=== PATIENT | male | born 1960 | race Two or more races ===

== ENCOUNTER 2021-05-23 09:29 | Emergency (ER) | payer MEDICAID, OTHER ==
[~2021-05-23] VITALS: Ht 180.3 cm; Wt 85.3 kg
[2021-05-23 10:51] LABS: Basophils # (auto) 0 10 ^3/uL (0-0.2); Basophils % (auto) 0.7 % (0.0-2.0); Eosinophils # (auto) 0.1 10 ^3/uL (0-0.8); Eosinophils % (auto) 1.3 % (0.0-7.0); Hematocrit 44.3 % (41.0-53.0); Hemoglobin 15.5 g/dL (13.5-17.5); Lymphocytes # (auto) 1.6 10 ^3/uL (0.4-5.4); Lymphocytes % (auto) 25.8 % (10.0-50.0); Mean Corpuscular Hemoglobin 29.2 pg (28.0-32.0); Mean Corpuscular Volume 83.4 fL (80.0-100.0); Monocytes # (auto) 0.5 10 ^3/uL (0-1.3); Monocytes % (auto) 8.8 % (0.0-12.0); Neutrophils # (auto) 3.9 10 ^3/uL (1.6-8.6); Neutrophils % (auto) 63.4 % (37.0-80.0); Nucleated Red Blood Cells % 0.2 %; Red Cell Distribution Width 14.1 % (11.8-14.3); White Blood Cell 6.2 10^3/uL (4.4-10.8)
[2021-05-23 11:42] LABS: Albumin 3.6 g/dL (3.4-5.0); Anion Gap 5 (5-15); Blood Urea Nitrogen 15 mg/dL (7-18); Carbon Dioxide 29 mmol/L (21-32); Chloride 106 mmol/L (98-107); Glucose 89 mg/dL (74-106); Potassium 4.3 mmol/L (3.5-5.1); Sodium 140 mmol/L (136-145)
[2021-05-23 11:49] LABS: Alanine Aminotransferase 38 U/L (16-61); Alkaline Phosphatase 68 U/L (45-117); Aspartate Aminotransferase 24 U/L (15-37); BUN/Creatinine Ratio 14.4; Bilirubin, Total 1.1 mg/dL (0.2-1.0); GFR African American 94 mL/min; GFR Non-African American 78 mL/min; Total Protein 7.1 g/dL (6.4-8.2)
[2021-05-23] MEDS ORDERED: CEPH-509 PO (14:54)
[2021-05-23 15:02] VITALS: BP 135/84
== END 2021-05-23 15:27 | disposition home or self-care (01) ==
LOC: ER 09:29
DX: S00.81XA Abrasion of other part of head, initial encounter (principal); W18.39XA Other fall on same level, initial encounter; Y93.89 Activity, other specified; Y92.89 Other specified places as the place of occurrence of the external cause; Y99.8 Other external cause status
CPT/HCPCS: 36415; 70450; 80053; 84484; 85025; 93005

== ENCOUNTER 2021-07-06 19:21 | Emergency (ER) | payer MEDICAID ==
[~2021-07-06] VITALS: Ht 180.3 cm; Wt 81.6 kg
[~2021-07-06 19:21] MED LIST: CEPH-509 PO
[2021-07-06 19:22] VITALS: BP 114/71
[2021-07-06] MEDS ORDERED: KETOROLAC TROMETH 60MG/2ML VIAL IM ONE (19:30)
[2021-07-06] MEDS ORDERED: LIDOCAINE 5% TOPICAL PATCH TOP ONE (19:30)
[2021-07-07] MEDS ORDERED: PERCOT PO (00:13)
[2021-07-07] MEDS ORDERED: LIDO5DIS21 TOP (00:13)
== END 2021-07-07 00:15 | disposition home or self-care (01) ==
LOC: ER 19:21
DX: S20.212A Contusion of left front wall of thorax, initial encounter (principal); X58.XXXA Exposure to other specified factors, initial encounter; Y93.89 Activity, other specified; Y92.89 Other specified places as the place of occurrence of the external cause; Y99.8 Other external cause status
CPT/HCPCS: 71101; 71250; 74176

== ENCOUNTER 2021-07-26 11:18 | Emergency (ER) | payer MEDICAID ==
[~2021-07-26] VITALS: Ht 180.3 cm; Wt 85.3 kg
[~2021-07-26 11:18] MED LIST changes: +LIDO5DIS21 TOP; +PERCOT PO
[2021-07-26 11:40] VITALS: BP 144/73
[2021-07-26] MEDS ORDERED: KETOROLAC TROMETH 60MG/2ML VIAL IM ONE (11:45)
[2021-07-26] MEDS ORDERED: TRAM-297 PO (12:23)
[2021-07-26] MEDS ORDERED: PRED20TA2 PO (12:23)
== END 2021-07-26 12:29 | disposition home or self-care (01) ==
LOC: ER 11:18
DX: M50.30 Other cervical disc degeneration, unspecified cervical region (principal); M54.12 Radiculopathy, cervical region; Z79.899 Other long term (current) drug therapy; Z88.8 Allergy status to other drugs, medicaments and biological substances
CPT/HCPCS: 72040; 73030; 73080; 96372; 99284; J1885

== ENCOUNTER 2021-08-12 20:12 | Emergency (ER) | payer MEDICAID ==
[~2021-08-12] VITALS: Ht 180.3 cm; Wt 82.2 kg
[~2021-08-12 20:12] MED LIST changes: +PRED20TA2 PO; +TRAM-297 PO
[2021-08-12 21:16] LABS: Urine Bacteria NONE SEEN /hpf (None Seen); Urine Blood Negative /uL (Negative); Urine WBC 2 /hpf (0 - 3)
[2021-08-12 21:31] LABS: Basophils # (auto) 0.2 10 ^3/uL (0-0.2); Basophils % (auto) 1.6 % (0.0-2.0); Eosinophils # (auto) 0.2 10 ^3/uL (0-0.8); Eosinophils % (auto) 1.6 % (0.0-7.0); Hematocrit 45.8 % (41.0-53.0); Lymphocytes # (auto) 1.3 10 ^3/uL (0.4-5.4); Lymphocytes % (auto) 9.2 % (10.0-50.0); Mean Corpuscular Hemoglobin 29.9 pg (28.0-32.0); Mean Corpuscular Hgb Conc. 34.8 g/dL (32.0-36.0); Mean Corpuscular Volume 85.7 fL (80.0-100.0); Monocytes % (auto) 6.9 % (0.0-12.0); Neutrophils # (auto) 11.2 10 ^3/uL (1.6-8.6); Neutrophils % (auto) 80.7 % (37.0-80.0); Nucleated Red Blood Cells % 0.1 %; Red Blood Cells 5.35 10^6/uL (4.5-5.90); Red Cell Distribution Width 14.6 % (11.8-14.3); White Blood Cell 13.8 10^3/uL (4.4-10.8)
[2021-08-12 21:45] LABS: Albumin 3.9 g/dL (3.4-5.0); Potassium 4.2 mmol/L (3.5-5.1)
[2021-08-12 21:50] LABS: BUN/Creatinine Ratio 19.5; Total Protein 7.4 g/dL (6.4-8.2)
[2021-08-13] MEDS ORDERED: NAP500T PO (00:01)
[2021-08-13 00:10] VITALS: BP 111/65
[2021-08-13] MEDS ORDERED: NAPROXEN 500 MG TAB PO ONE (00:45)
== END 2021-08-13 00:48 | disposition home or self-care (01) ==
LOC: ER 20:12
DX: R07.89 Other chest pain (principal)
CPT/HCPCS: 36415; 71045; 80053; 81001; 84484; 85025; 93005

== ENCOUNTER 2024-08-16 17:02 | Emergency (ER) | payer MEDICAID ==
[~2024-08-16] VITALS: Ht 180.3 cm; Wt 92.0 kg
[~2024-08-16 17:02] MED LIST changes: +NAP500T PO
[2024-08-16 17:39] VITALS: BP 118/73; PULSE 59; RESP 18; TEMP 98.9; O2SAT 96
--- NOTE | 2024-08-16 18:22 | ED.PDOC ---
Back pain HPI HPI Comments PT CC 11/05 BACK PAIN UNREILEVED [facility] CURRENTLY PRESCRIBED MELOXICAM WHICH SHE STATES HAS NOT BEEN HELPING. HE NOTES LAST FLARE-UP WAS OVER 2 YEARS AGO. FOLLOW UP WITH PAIN MANAGEMENT AND HAD SOME EPIDURAL INJECTIONS OVER 2 YEARS AGO WHICH DID HELP REPORTS NO NEW INJURY. HE NOTES THE SAME PATTERN OF THE PAIN RIGHT LOWER BACK SHARP SHOOTING TRAVELING DOWN RIGHT LATERAL LEG CROSSING OVER ANTERIOR KNEE AND STRATTON TO THE FOOT HIVES A SHARP SHOOTING TYPE PAIN WITH INTERMITTENT NUMBNESS. HE DENIES ANY SADDLE ANESTHESIA, WEAKNESS, LOSS OF BOWEL OR BLADDER CONTROL. Chief Complaint: Back Pain Time Seen by MD: 18:16 Primary Care Provider: Сергей Reviewed Notes: Nurses Notes, Medications, Allergies Allergies: Coded Allergies: Sertraline (Verified Allergy, Unknown, 07/26/21) Home Meds Active Scripts Methocarbamol (Methocarbamol) 750 Mg Tab, 750 MG PO HS PRN for 10 Days, #10 TAB Prov:MARK IBANEZ COVERING MACHINE TENDER 08/16/24 Methylprednisolone (Medrol Dosepak) 4 Mg Mehdi, 4 MG PO UD for 6 Days, #21 TAB UAD START IN THE A.M. Prov:MARK IBANEZ COVERING MACHINE TENDER 08/16/24 Naproxen (NAPROSYN TABLET) 500 Mg Tb, 1 TAB PO BID PRN, #30 TAB 1 Refill Prov:WALTER KELLY DO 08/13/21 Tramadol Hcl (Ultram) 50 Mg Tab, 50 MG PO TID, #20 TAB Prov:DIETER REYNOLDS 07/26/21 Prednisone (Prednisone) 20 Mg Tab, 40 MG PO DAILY, #20 MG Prov:DIETER REYNOLDS 07/26/21 Oxycodone W/ Acetaminophen (Percocet 5/325MG) 1 Tab Tb, 1 TAB PO Q8HP PRN for 5 Days, #8 TAB Prov:JESÚS FRENCH MD 07/07/21 Lidocaine (LIDODERM 5% TOPICAL PATCH) 1 Patch Ph, 1 PATCH TOP DAILY for 12 Days, #12 PATCH 1 Refill Prov:JESÚS FRENCH MD 07/07/21 Cephalexin (KEFLEX 500) 500 Mg Cap, 1 CAP PO BID for 7 Days, #14 CAP Prov:SANDRA KANG MD 05/23/21 Information Source: Patient Mode of Arrival: Ambulatory Past Medical History PAST MEDICAL HISTORY: Denies Surgical History: Denies all surgeries Family History Family History: Reviewed,noncontributory to illness Social History Smoker: Non-Smoker Alcohol: Denies ETOH Use Drugs: Denies Drug Use Lives In: Home Constitutional: denies: chills, diaphoresis, fatigue, fever, malaise, sweats, weakness, others EENTM: denies: blurred vision, double vision, ear bleeding, ear discharge, ear drainage, ear pain, ear ringing, eye pain, eye redness, hearing loss, mouth pain, mouth swelling, nasal discharge, nose bleeding, nose congestion, nose pain, photophobia, tearing, throat pain, throat swelling, voice changes, others Respiratory: denies: cough, hemoptysis, orthopnea, SOB at rest, shortness of breath, SOB with excertion, stridor, wheezing, others Cardiovascular: denies: chest pain, dizzy spells, diaphoresis, Dyspnea on exertion, edema, irregular heart beat, left arm pain, lightheadedness, palpitations, PND, syncope, others Gastrointestinal: denies: abdomen distended, abdominal pain, blood streaked bowels, constipated, diarrhea, dysphagia, difficulty swallowing, hematemesis, melena, nausea, poor appetite, poor fluid intake, rectal bleeding, rectal pain, vomiting, others Genitourinary: denies: burning, dysuria, flank pain, frequency, hematuria, incontinence, penile discharge, penile sore, pain, testicle pain, testicle swelling, urgency, others Neurological: denies: dizziness, fainting, headache, left sided numbness, left sided weakness, numbness, paresthesia, pre-existing deficit, right sided numbness, right sided weakness, seizure, speech problems, tingling, tremors, weakness, others Musculoskeletal: reports: back pain; denies: gout, joint pain, joint swelling, muscle pain, muscle stiffness, neck pain, others Integumetry: denies: bruises, change in color, change in hair/nails, dryness, laceration, lesions, lumps, rash, wounds, others Allergic/Immunocompromised: denies: Difficulty Healing, Frequent Infections, Hives, Itching, others Hematologic/Lymphatic: denies: anemia, blood clots, easy bleeding, easy bruising, swollen glands, others Endocrine: denies: excessive hunger, excessive sweating, excessive thirst, excessive urination, flushing, intolerance to cold, intolerance to heat, unexplained weight gain, unexplained weight loss, others Psychiatric: denies: anxiety, bipolar disorder, depression, hopeless, panic disorder, schizophrenia, sleepless, suicidal, others Physical Exam General Appearance: No Apparent Distress, Normal HEENT: Pharynx Normal Neck: Full Range of Motion, Non-Tender Respiratory: Lungs Clear, No Respiratory Distress, Normal Breath Sounds Cardiovascular: No Edema, No JVD, No Murmur, No Gallop, Normal Peripheral Pulses, Regular Rate/Rhythm Breast Exam: Deferred Gastrointestinal: No Organomegaly, Non Tender, No Pulsatile Mass, Normal Bowel Sounds, Soft Genitalia: Deferred Pelvic: Deferred Rectal: Deferred Extremities: Normal capillary refill, Normal inspection, Normal range of motion, Non-tender, No pedal edema Musculoskeletal : Location: Right Extremity Location: Back (TENDERNESS PALPATED OVER L3-L4 LUMBAR SPINE WITHOUT CREPITUS OR STEP-OFFS. POSITIVE STRAIGHT LEG RAISE RIGHT SIDE FOLLOWING L4 DERMATOME. STRENGTH SENSORY MOTION INTACT POSITIVE PEDAL PULSE) Apperance: Normal Neurologic: Alert, loss prevention investigator II-XII nml as Tested, No Motor Deficits, Normal Affect, Normal Mood, No Sensory Deficits Cerebellar Function: Normal Reflexes: Normal Skin: Dry, Normal Color, Warm Lymphatic: No Adenopathy Was a procedure done? Was a procedure done?: No Back Pain Differential Dx Differential Diagnosis: Fracture, Musculoskeletal Pain, Urinary Tract Infection X-Ray, Labs, Meds, VS Vital Signs Date Time Temp Pulse Resp B/P (MAP) Pulse Ox O2 Delivery O2 Flow Rate FiO2 08/16/24 17:39 98.9 59 18 118/73 (88) 96 98.9 Current Medications Medications (Trade) Dose Ordered Sig/Sudeep Route Start Time Stop Time Status Last Admin Ketorolac Tromethamine (Toradol Injection) 60 mg ONCE ONCE IM 08/16/24 18:45 08/16/24 18:46 DC 08/16/24 18:40 Dexamethasone Sodium Phosphate (Decadron Injection) 10 mg ONCE ONCE IM 08/16/24 18:45 08/16/24 18:46 DC 08/16/24 18:40 X-Ray, Labs, Meds, VS Comment PATIENT GIVEN TORADOL 60 MG IM AND DECADRON 10 MG IM. HE REPORTS IMPROVEMENT IN PAIN AND FUNCTION REQUESTING DISCHARGE AT THIS TIME. WE WILL SCRIPT TRIAL OF MEDROL DOSEPAK AND METHOCARBAMOL ALONG WITH REFILLING TEMPORARY SHORT-TERM USE OF TRAMADOL. ADVISED TO TAKE MEDICATIONS PRESCRIBED SIDE EFFECTS DISCUSSED A DVISED NOT TO DRIVE OR DRINK ANY ALCOHOL WHILE TAKING MEDICATIONS. ADVISED [facility] TO [facility]SIDER REFERRAL FOR PAIN MANAGEMENT FOR EPIDURAL INJECTIONS OR REPEAT MRI IF SYMPTOMS PERSIST. DISCUSSED ER RETURN PRECAUTIONS SUCH LOSS OF BOWEL BLADDER CONTROL OR SADDLE ANESTHESIA. PATIENT INDICATES UNDERSTANDING AND AGREES WITH DISCHARGE PLAN OF CARE. Time of 1ST Reevaluation: 18:22 Reevaluation 1ST: Unchanged Time of 2ND Reevaluation: 18:58 Reevaluation 2ND: Improved Patient Education/Counseling: Diagnosis, Treatment, Prognosis, Need For Follow Up Family Education/Counseling: No Family Present SEPSIS Sepsis Screen Date sepsis recognized/suspect: Aug 16, 2024 Time Sepsis recognized/suspect: 1734 Recent Procedure: No On Antibiotic Therapy: No Respiratory Rate >20: No Heart Rate >90: No Temp<36 C (96.8 F) or >38.3 C: No SBP <90 or MAP <65 mmHG: No New Acute Mental Status Change: No Is the patient on CPAP, BIPAP,: No Vital Signs Date Time Temp Pulse Resp B/P (MAP) Pulse Ox O2 Delivery O2 Flow Rate FiO2 08/16/24 17:39 98.9 59 18 118/73 (88) 96 98.9 Medications Medications Dose Ordered Sig/Sudeep Route Start Time Stop Time Status Last Admin Dose Admin Dexamethasone Sodium Phosphate 10 mg ONCE ONCE IM 08/16/24 18:45 08/16/24 18:46 DC 08/16/24 18:40 Ketorolac Tromethamine 60 mg ONCE ONCE IM 08/16/24 18:45 08/16/24 18:46 DC 08/16/24 18:40 Departure 1 Departure Time of Disposition: 18:51 Impression: Primary Impression: Lumbosacral radiculopathy at L4 Disposition: 01 HOME / SELF CARE / HOMELESS Condition: Stable e-Prescriptions Methocarbamol (Methocarbamol) 750 Mg Tab 750 MG PO HS PRN for 10 Days, #10 TAB Prov: MARK IBANEZ 08/16/24 Methylprednisolone (Medrol Dosepak) 4 Mg Mehdi 4 MG PO UD for 6 Days, #21 TAB UAD START IN THE A.M. Prov: MARK IBANEZ 08/16/24 Discharged With: Self Critical Care Note Critical Care Time?: No Stability Stability form required: No MARK IBANEZ Aug 16, 2024 18:22
[2024-08-16] MEDS: KETOROLAC TROMETH 60MG/2ML VIAL IM ONE (18:40)
[2024-08-16] MEDS: DexAMETHasone SOD PHOS 10MG/1ML VIAL INJ IM ONE (18:40)
[2024-08-16] MEDS ORDERED: METH4PAK PO (18:52)
[2024-08-16] MEDS ORDERED: METH-1182 PO (18:52)
[2024-08-16] MEDS ORDERED: TRAM50TA2 PO (18:56)
== END 2024-08-17 01:31 | disposition home or self-care (01) ==
LOC: ER 17:02
DX: M54.17 Radiculopathy, lumbosacral region (principal); M25.561 Pain in right knee; Z88.8 Allergy status to other drugs, medicaments and biological substances
CPT/HCPCS: 96372; 99284; J1100; J1885

== ENCOUNTER 2024-08-26 19:16 | Emergency (ER) | payer MEDICAID ==
[~2024-08-26] VITALS: Ht 180.3 cm; Wt 86.1 kg
[2024-08-26 19:16] VITALS: TEMP 98
[~2024-08-26 19:16] MED LIST changes: +METH-1182 PO; +METH4PAK PO
[2024-08-26] MEDS ORDERED: ONDANSETRON ODT 4 MG TAB PO ONE (20:45)
[2024-08-26] MEDS ORDERED: MORPHINE SULFATE INJ 2 MG/ml SYRG IM ONE (20:45)
[2024-08-26] MEDS ORDERED: ACE3T PO (20:58)
[2024-08-26] MEDS ORDERED: CYCL-837 PO (20:58)
--- NOTE | 2024-08-26 20:58 | ED.PDOC ---
Back pain HPI HPI Comments 64 year old male presents to requesting pain management for chronic lumbar back pain. Patient with PMH significant for chronic back pain/sciatica presents to ER requesting pain management for chronic lumbar back pain. Patient rates his current pain an 8/10 to right lower lumbar region with numbness/tingling down posterior right leg that he states is chronic. Notes he has been taking methocarbamol for his pain with some relief and reports that he does have an appointment with his PCP with regards to his symptoms in one week. Denies fever, shortness of breath, chest pain, n/v, abdominal pain, extremity weakness, trauma/falls, night sweats, fatigue, changes in urination/bm or any further sy mptoms/complaints Chief Complaint: Lower Extremity Time Seen by MD: 19:18 Primary Care Provider: Сергей Reviewed Notes: Nurses Notes, Medications, Allergies Allergies: Coded Allergies: Sertraline (Verified Allergy, Unknown, 07/26/21) Home Meds Active Scripts Acetaminophen W/ Codeine (Tylenol W/Cod #3) 1 Tab Tb, 1 TAB PO Q6HPRN, #10 TAB 0 Refills Prov:RIK HEREDIA 08/26/24 Cyclobenzaprine Hcl (Cyclobenzaprine Hcl) 5 Mg Tab, 1 TAB PO QHSP, #14 TAB 0 Refills Prov:RIK HEREDIA 08/26/24 Methocarbamol (Methocarbamol) 750 Mg Tab, 750 MG PO HS PRN for 10 Days, #10 TAB Prov:MARK IBANEZP 08/16/24 Methylprednisolone (Medrol Dosepak) 4 Mg Mehdi, 4 MG PO UD for 6 Days, #21 TAB UAD START IN THE A.M. Prov:MARK IBANEZ 08/16/24 Naproxen (NAPROSYN TABLET) 500 Mg Tb, 1 TAB PO BID PRN, #30 TAB 1 Refill Prov:WALTER KELLY DO 08/13/21 Tramadol Hcl (Ultram) 50 Mg Tab, 50 MG PO TID, #20 TAB Prov:DIETER REYNOLDS 07/26/21 Prednisone (Prednisone) 20 Mg Tab, 40 MG PO DAILY, #20 MG Prov:DIETER REYNOLDS 07/26/21 Oxycodone W/ Acetaminophen (Percocet 5/325MG) 1 Tab Tb, 1 TAB PO Q8HP PRN for 5 Days, #8 TAB Prov:JESÚS FRENCH MD 07/07/21 Lidocaine (LIDODERM 5% TOPICAL PATCH) 1 Patch Ph, 1 PATCH TOP DAILY for 12 Days, #12 PATCH 1 Refill Prov:JESÚS FRENCH MD 07/07/21 Cephalexin (KEFLEX 500) 500 Mg Cap, 1 CAP PO BID for 7 Days, #14 CAP Prov:SANDRA KANG MD 05/23/21 Information Source: Patient Mode of Arrival: Ambulatory Past Medical History Past Medical History (Other): Chronic lumbar back pain Sciatica Surgical History: Denies all surgeries Family History Family History: Unknown Social History Smoker: Non-Smoker Alcohol: Denies ETOH Use Drugs: Denies Drug Use Lives In: Home Constitutional: denies: chills, diaphoresis, fatigue, fever, malaise, sweats, weakness, others EENTM: denies: blurred vision, double vision, ear bleeding, ear discharge, ear drainage, ear pain, ear ringing, eye pain, eye redness, hearing loss, mouth pain, mouth swelling, nasal discharge, nose bleeding, nose congestion, nose pain, photophobia, tearing, throat pain, throat swelling, voice changes, others Respiratory: denies: cough, hemoptysis, orthopnea, SOB at rest, shortness of breath, SOB with excertion, stridor, wheezing, others Cardiovascular: denies: chest pain, dizzy spells, diaphoresis, Dyspnea on exertion, edema, irregular heart beat, left arm pain, lightheadedness, palpitations, PND, syncope, others Gastrointestinal: denies: abdomen distended, abdominal pain, blood streaked bowels, constipated, diarrhea, dysphagia, difficulty swallowing, hematemesis, melena, nausea, poor appetite, poor fluid intake, rectal bleeding, rectal pain, vomiting, others Genitourinary: denies: burning, dysuria, flank pain, frequency, hematuria, incontinence, penile discharge, penile sore, pain, testicle pain, testicle swelling, urgency, others Neurological: denies: dizziness, fainting, headache, left sided numbness, left sided weakness, numbness, paresthesia, pre-existing deficit, right sided numbness, right sided weakness, seizure, speech problems, tingling, tremors, weakness, others Musculoskeletal: reports: others (As stated in HPI) Integumetry: denies: bruises, change in color, change in hair/nails, dryness, laceration, lesions, lumps, rash, wounds, others Allergic/Immunocompromised: denies: Difficulty Healing, Frequent Infections, Hives, Itching, others Hematologic/Lymphatic: denies: anemia, blood clots, easy bleeding, easy bruising, swollen glands, others Endocrine: denies: excessive hunger, excessive sweating, excessive thirst, excessive urination, flushing, intolerance to cold, intolerance to heat, unexpl ained weight gain, unexplained weight loss, others Psychiatric: denies: anxiety, bipolar disorder, depression, hopeless, panic disorder, schizophrenia, sleepless, suicidal, others Physical Exam General Appearance: No Apparent Distress HEENT: PERRL/EOMI Neck: Full Range of Motion, Non-Tender, Normal Respiratory: Chest Non-Tender, Lungs Clear, No Accessory Muscle Use, No Respiratory Distress, Normal Breath Sounds Cardiovascular: No Murmur, No Gallop, Regular Rate/Rhythm Breast Exam: Deferred Gastrointestinal: Non Tender, No Pulsatile Mass, Soft Genitalia: Deferred Pelvic: Deferred Rectal: Deferred Extremities: Normal capillary refill, Normal range of motion Musculoskeletal : Extremity Location: Back (TTP to right lower lumbar paraspinals noted. Gait slowed with use of walker) Neurologic: Alert, finish repairer II-XII nml as Tested, No Motor Deficits, Normal Affect, Normal Mood, No Sensory Deficits Cerebellar Function: Normal Reflexes: Normal Skin: Dry, Normal Color, Warm Peripheral Pulses: 2+ femoral (R), 2+ femoral (L), 2+ dorsalis pedis (R), 2+ dorsalis pedis (L), 2+ Radial (R), 2+ Radial (L), 2+ Brachial (R), 2+ Brachial (L) Lymphatic: No Adenopathy Was a procedure done? Was a procedure done?: No Sedation Sedation?: No Back Pain Differential Dx Differential Diagnosis: AAA, Fracture, Urinary Tract Infection X-Ray, Labs, Meds, VS Vital Signs Date Time Temp Pulse Resp B/P (MAP) Pulse Ox O2 Delivery O2 Flow Rate FiO2 08/26/24 19:16 98.0 68 18 113/67 (82) 98 98.0 Toradol 60 mg IM ordered Patient had improvement in symptoms and in no distress prior to discharge Advised on rest/ no strenuous activity Advised to follow up with PCP and pain management in 1-2 days Patient verbalized understanding and agreeable with current plan of care Advised to return to ER immediately if symptoms worsen Time of 1ST Reevaluation: 20:24 Reevaluation 1ST: N/A Patient Education/Counseling: Diagnosis, Treatment, Prognosis, Need For Follow Up Family Education/Counseling: No Family Present SEPSIS Sepsis Screen Date sepsis recognized/suspect: Aug 26, 2024 Time Sepsis recognized/suspect: 1915 Recent Procedure: No On Antibiotic Therapy: No Respiratory Rate >20: No Heart Rate >90: No Temp<36 C (96.8 F) or >38.3 C: No SBP <90 or MAP <65 mmHG: No New Acute Mental Status Change: No Is the patient on CPAP, BIPAP,: No Vital Signs Date Time Temp Pulse Resp B/P (MAP) Pulse Ox O2 Delivery O2 Flow Rate FiO2 08/26/24 19:16 98.0 68 18 113/67 (82) 98 98.0 Departure 1 Departure Time of Disposition: 20:52 Impression: Primary Impression: Sciatica of right side Disposition: 01 HOME / SELF CARE / HOMELESS Condition: Stable e-Prescriptions Acetaminophen W/ Codeine (Tylenol W/Cod #3) 1 Tab Tb 1 TAB PO Q6HPRN, #10 TAB 0 Refills Prov: RIK HEREDIA 08/26/24 Cyclobenzaprine Hcl (Cyclobenzaprine Hcl) 5 Mg Tab 1 TAB PO QHSP, #14 TAB 0 Refills Prov: RIK HEREDIA 08/26/24 Discharged With: Friend Critical Care Note Critical Care Time?: No Stability Stability form required: No Heart Score Heart Score: Heart Score Response (Comments) Value History N/A 0 EKG N/A 0 Age N/A 0 Risk Factors N/A 0 Troponin N/A 0 Total 0 RIK HEREDIA Aug 26, 2024 20:58
[2024-08-26 21:50] VITALS: BP 95/71; PULSE 65; RESP 16; O2SAT 95
[2024-08-26] MEDS: KETOROLAC TROMETH 60MG/2ML VIAL IM ONE (21:53)
== END 2024-08-26 22:06 | disposition home or self-care (01) ==
LOC: ER 19:16
DX: M54.31 Sciatica, right side (principal); Z87.898 Personal history of other specified conditions; Z79.52 Long term (current) use of systemic steroids; Z88.1 Allergy status to other antibiotic agents; Z79.899 Other long term (current) drug therapy
CPT/HCPCS: 96372; 99283; J1885